=== PATIENT | female | born 1960 | race Caucasian/White ===

== ENCOUNTER → 2017-07-22 | Outpatient (CLI) | payer OTHER ==
[~2017-07-22] MED LIST: AMRIX15 MG PO; ASPIR 8181 MG PO; BIOTIN5 M1 PO; CENTRUM SILVER1 EAC3 PO; CLONAZEPAM0.5 MG PO; CYTOMEL5 MCG PO; ESTRADIOL2 MG PO; LAXATIVE PO; MEGA RED FISH OIL PO; POTASSIUM GLUCONATE PO; STOOL SOFTENER PO; SYNTHROID100 MCG PO; TOBRADEX EYE O3.5 GM OP; TOBREX5 ML OP; VITAMIN E PO
--- NOTE | 2017-07-22 14:40 | Diagnostic Imaging Report ---
History: Neck pain, headaches Comparison studies: MRI of the cervical spine 09/27/2008 Technique: Sagittal T1, T2 and IR, axial T2 and axial gradient echo Intravenous contrast: None Findings: Alignment: Normal lordosis. No scoliosis. Cervicomedullary junction: No abnormalities. Patent foramen magnum. Soft tissues: No T2 hyperintense inflammatory changes. Spinal cord: Normal in size and signal from the foramen magnum through T4 Vertebrae: Normal in height and signal intensity. No fractures, infection or neoplasm. Degenerative changes: C2-C3: No abnormalities. C3-C4: Small central disc osteophyte complex with patent canal and foramina C4-C5: Mild disc degeneration with loss of T2 signal. Diffuse disc osteophyte complex and bilateral uncinate process hypertrophy with patent canal and foramina C5-C6: Disc degeneration with loss of T2 signal. Diffuse disc osteophyte complex and bilateral uncinate process hypertrophy results in mild canal stenosis, moderate right and mild left foraminal narrowing C6-C7: Disc degeneration with loss of T2 signal. Diffuse disc osteophyte complex with patent canal and foramina C7-T1: No abnormalities. IMPRESSION: 1. Moderate right and mild left foraminal narrowing at C5-6 secondary to degenerative changes. 2. Other mild degenerative changes as described above No significant change from previous examination. Signed by: DR Robe Antonio M.D. on 07/22/2017 2:37 PM
== END ==
LOC: MRI 12:49
PROVIDERS: ATTEND Family Medicine
DX: M50.30 Other cervical disc degeneration, unspecified cervical region (principal)
CPT/HCPCS: 72141

== ENCOUNTER → 2017-08-18 | Outpatient (CLI) | payer OTHER ==
--- NOTE | 2017-08-18 09:04 | Diagnostic Imaging Report ---
PROCEDURE:ABDOMINAL ULTRASOUND COMPARISON:[facility], CT, CT ABDOMEN AND PELVIS WITH CONTRAST, 07/05/2009, 11:10. [facility], US, ABDOMINAL ULTRASOUND, 07/21/2008, 8:05. INDICATION:RUQ ABDOMEN PAIN TECHNIQUE:Knapp scale color Doppler ultrasound FINDINGS: Image portions of the inferior vena cava and abdominal aorta are of normal caliber. 1.2 x 0.6 x 0.8 cm anechoic nodule within the pancreatic tail/distal body. No associated vascularity or calcification. Right liver span 17 cm. Mildly increased parenchymal echogenicity with a smooth margin. Portal vein diameter: 0.7 cm; normal flow direction. Normal gallbladder. Wall thickness 0.2 cm. Common bile duct diameter 0.2 cm. Right kidney span: 11.7 cm Left kidney span: 9.2 cm. Both kidneys are normal. Splenic length 7.6 cm. CONCLUSION: 1. Interval development of a 1 cm anechoic cystic nodule within the pancreatic tail relative to June 2009. Primary differential considerations include pseudocyst and side-branch IPMN. Pancreas protocol MRI is recommended for further evaluation. 2. Hepatic steatosis. Dictated by: Ant Stone M.D. on 08/18/2017 at 9:06 Electronically approved by: Ant Stone M.D. on 08/18/2017 at 9:06
== END ==
LOC: US 07:30
PROVIDERS: ATTEND Family Medicine
DX: R10.11 Right upper quadrant pain (principal)
CPT/HCPCS: 76700

== ENCOUNTER → 2017-08-19 | Outpatient (CLI) | payer OTHER ==
[~2017-08-19] MED LIST changes: +GADOBENATE DIMEGLUMINE 1 ML IV ONE; +SODIUM CHLORIDE 0.9% 50ML 50 ML ONE
--- NOTE | 2017-08-19 20:20 | Diagnostic Imaging Report ---
PROCEDURE: MRI ABDOMEN WOW/MRCP TECHNIQUE: Axial T1 in and out of phase, axial T2, with and without fat-sat, axial T2 fat sat, axial DWI, and ADC MR images of the abdomen were performed before the intravenous administration of 12 cc of gadolinium. Axial T1, GRE dynamic images in precontrast, arterial, venous and delayed phases were performed. Subtraction images were also obtained. Heavily T2-weighted MRCP images were performed, including thick and thin slab MRCP ASSETT, 3-D breath-hold FRFSE, and 3-D reconstructions. COMPARISON: [facility], US, US ABDOMEN COMPLETE, 08/18/2017, 8:06. INDICATIONS: Cystic pancreatic lesion on ultrasound FINDINGS: LOWER THORAX: Lung bases are unremarkable. Bilateral breast implants. LIVER: Mild hepatomegaly. No hepatic signal abnormality. No focal hepatic lesions. BILIARY: No intra-extrahepatic biliary ductal dilation. Gallbladder is unremarkable, without filling defects, wall thickening or surrounding fluid. PANCREAS: No ductal dilation. 1.1 x 0.8 cm T2 hyperintense, T1 hypointense, slightly lobulated nonenhancing lesion in the pancreatic body, which appears to connect to the pancreatic duct (series 10, images 70-72 and series 13, image 4-6). This lesion contains a thin, non-vascular septation in its superior aspect (best visualized on series 100/subtraction images, image 70 and series 15, image 21). No enhancing mural nodules or soft tissue components. No other focal cystic or solid lesions. No peripancreatic increase T2 signal/free fluid or fluid collections. SPLEEN: No splenomegaly. ADRENALS: No nodules. KIDNEYS: No hydronephrosis or solid mass in the imaged portion of the kidneys. PERITONEUM / RETROPERITONEUM: No upper abdominal free fluid. LYMPH NODES: No upper abdominal lymphadenopathy. VESSELS: Unremarkable BONES AND SOFT TISSUES: Dextroscoliosis of the lumbar spine with associated degenerative changes. IMPRESSION: 1. cystic nonenhancing lesion in the pancreatic body, corresponding to the abnormalities seen on recent ultrasound likely represents a sidebranch IPMN given the connection with the pancreatic duct. Although a thin nonvascular septation is visualized, no mural nodules or solid components are identified. It is possible that this may represent 2 adjacent smaller cystic lesions, rather than a single lesion with a thin septation. No high risk stigmata of malignancy or worrisome features. Recommend followup abdominal MRI in 6 months to document stability. 2. Mild hepatomegaly. George Schaffer M.D. Dictated by: George Schaffer M.D. on 08/19/2017 at 20:22 Electronically approved by: George Schaffer M.D. on 08/19/2017 at 20:22
== END ==
LOC: MRI 15:21
PROVIDERS: ATTEND Family Medicine
DX: R93.8 Abnormal findings on diagnostic imaging of other specified body structures (principal)
CPT/HCPCS: 74183

== ENCOUNTER → 2017-08-29 | Day surgery (SDC) | payer OTHER ==
[2017-08-27 12:26] LABS: BASOPHILS % 0.4 % (0.0-1.0); EOSINOPHILS # (AUTO) 0.1 (0.0-0.4); EOSINOPHILS % 0.9 % (0.0-6.0); HEMATOCRIT 40.3 % (34.2-44.1); HEMOGLOBIN 13.5 g/dL (12.0-16.0); LYMPHOCYTES # (AUTO) 1.8 (1.0-3.2); LYMPHOCYTES % 25.5 % (18.0-39.1); MEAN CORPUSCULAR HEMOGLOBIN 32.1 pg (28-32); MEAN CORPUSCULAR HGB CONC 33.5 g/dL (31-35); MONOCYTES # (AUTO) 0.5 (0.2-0.8); MONOCYTES % 6.4 % (4.4-11.3); NEUTROPHILS # (AUTO) 4.7 (2.1-6.9); NEUTROPHILS % 66.7 % (38.7-80.0); PLATELET COUNT 320 x10e3/uL (140-360); RED CELL DISTRIBUTION WIDTH 13.8 % (11.7-14.4)
[2017-08-27 12:46] LABS: ANION GAP 14.4 mmol/L (8-16); BLOOD UREA NITROGEN 16 mg/dL (7-26); BUN/CREATININE RATIO 19 (6-25); CALCIUM 9.9 mg/dL (8.4-10.2); CARBON DIOXIDE 30 mmol/L (22-29); CHLORIDE 94 mmol/L (98-107); CREATININE, SERUM 0.83 mg/dL (0.57-1.11); EST GLOMERULAR FILTRATION RATE > 60 ML/MIN (60-); GLUCOSE 92 mg/dL (74-118); POTASSIUM 4.4 mmol/L (3.5-5.1); SODIUM 134 mmol/L (136-145)
[~2017-08-29] MED LIST changes: +FENTANYL CITRATE/PF 100MCG/2 ML INJ ONE; -GADOBENATE DIMEGLUMINE 1 ML IV ONE; +MIDAZOLAM HCL 2 MG/2 ML VIAL ONE; +PROPOFOL IV EMULSION 10 MG/ML 20 ML VIAL ONE; -SODIUM CHLORIDE 0.9% 50ML 50 ML ONE; +SUMATRIPTAN SUC25 MG PO; +TRINTELLEX BLADIN; +TYLENOL WITH C1 EACH PO
== END | disposition home or self-care (01) ==
LOC: OR 07:09
PROVIDERS: ATTEND Surgery
DX: K29.71 Gastritis, unspecified, with bleeding (principal); K29.50 Unspecified chronic gastritis without bleeding; K21.0 Gastro-esophageal reflux disease with esophagitis; G43.909 Migraine, unspecified, not intractable, without status migrainosus; M54.9 Dorsalgia, unspecified; M54.2 Cervicalgia; Z88.5 Allergy status to narcotic agent; Z88.8 Allergy status to other drugs, medicaments and biological substances; Z91.018 Allergy to other foods; Z01.810 Encounter for preprocedural cardiovascular examination; Z01.812 Encounter for preprocedural laboratory examination; Z79.82 Long term (current) use of aspirin
CPT/HCPCS: 36415; 43239; 80048; 85025; 88305; 88312; 93005; J2250

== ENCOUNTER → 2017-09-04 | Outpatient (CLI) | payer OTHER ==
[~2017-09-04] MED LIST changes: -FENTANYL CITRATE/PF 100MCG/2 ML INJ ONE; -MIDAZOLAM HCL 2 MG/2 ML VIAL ONE; -PROPOFOL IV EMULSION 10 MG/ML 20 ML VIAL ONE; +SINCALIDE 3 MCG/VIAL INJ ONE
--- NOTE | 2017-09-04 18:29 | Diagnostic Imaging Report ---
Hepatobiliary Scan with Gallbladder Ejection Fraction Clinical information: 57 F with RUQ abdominal pain with bloating and nausea Report: Following intravenous administration of 7 millicuries of Tc-99m mebrofenin, dynamic images of the abdomen in the anterior projection were obtained through 46 minutes. Sincalide (CCK analog) 1.3 micrograms was administered intravenously over 30 minutes with additional imaging for determination of gallbladder ejection fraction. Perfusion to the liver is normal. Extraction of tracer from the blood pool by the liver parenchyma is normal. Tracer is seen promptly within the biliary tract. The gallbladder begins to fill by 10 minutes post-injection of tracer and fills adequately. Tracer is seen in the small bowel by 15 minutes. The gallbladder ejection fraction with administration of sincalide is 91% (normal greater than 40%). Impression: 1. Filling of the gallbladder excludes the diagnosis of acute cystic duct obstruction/acute cholecystitis. 2. Normal gallbladder ejection fraction of 91% does not support the clinical diagnosis of chronic cholecystitis/gallbladder dyskinesia. Signed by: Dr. Jackie Martins M.D. on 09/04/2017 6:25 PM
== END ==
LOC: NM 13:37
PROVIDERS: ATTEND Surgery
DX: R10.13 Epigastric pain (principal)
CPT/HCPCS: 78227; A9537; J2805

== ENCOUNTER → 2018-07-09 | Outpatient (CLI) | payer BC ==
[~2018-07-09] MED LIST changes: +GADOBENATE DIMEGLUMINE 1 ML IV ONE; -SINCALIDE 3 MCG/VIAL INJ ONE
--- NOTE | 2018-07-12 16:59 | Diagnostic Imaging Report ---
EXAMINATION: MRI Abdomen with and without contrast. TECHNIQUE: Axial T1 nonfat sat in and out of phase, axial T2 fat sat, coronal T2 nonfat sat, axial DWI and ADC MR images of the abdomen were obtained before and after the administration of cc of gadolinium. Axial T1 fat sat GRE dynamic images in precontrast, arterial, venous and delayed phases were obtained. Heavily T2-weighted MRCP images were also performed, including thick and thin slab MRCP ASSETT and 3-D reconstructions. CLINICAL HISTORY:Pancreatic cyst COMPARISON: MRI abdomen 08/19/2017 FINDINGS: LOWER THORAX: Lung bases are clear.. Bilateral breast implants are again noted. LIVER: Normal hepatic contour. Likely Rose's lobe.. No hepatic signal abnormality. No focal hepatic lesions. BILIARY: No intra or extrahepatic biliary ductal dilation. The common bile duct measures 4.2 mm at the michelle hepatis and 3.5 mm at the pancreatic head. Normal luminal contour and normal tapering to the ampulla. No intraluminal filling defects, strictures or extrinsic compressions. Gallbladder is unremarkable, without filling defects, wall thickening or pericholecystic fluid.. PANCREAS: Stable 1.2 x 0.7 cm lobulated T2 hyperintense, T1 hypointense, nonenhancing lesion in the pancreatic body adjacent to the pancreatic duct (series 6, image 20 and series 9, image 71), which contains a single thin septation with perceived enhancement. No enhancing mural nodules are identified. The pancreatic duct is normal in caliber. No other focal lesions. SPLEEN: No splenomegaly. ADRENALS: No nodules. KIDNEYS: No hydronephrosis or solid enhancing mass in the imaged portion of the kidneys. Mild to moderate right pelviectasis, which is relatively unchanged since the prior exam. PERITONEUM / RETROPERITONEUM: No upper abdominal free fluid. GI TRACT: Visualized bowel shows no dilation or obstruction. LYMPH NODES: No upper abdominal lymphadenopathy. VESSELS: The celiac trunk, superior and inferior mesenteric and bilateral renal arteries are patent. The portal, superior mesenteric and splenic veins are patent. No collateral circulation. BONES AND SOFT TISSUES: Stable dextroscoliosis of the lumbar spine, with associated degenerative changes. No soft tissue abnormalities. IMPRESSION: 1. Stable size and appearance of 1.2 cm lobulated cystic lesion in the pancreatic body adjacent to the pancreatic duct, which likely represents 2 adjacent unilocular lesions by pancreatic tissue rather than a true septation, suggesting adjacent side branch IPMNs. No definite worrisome features or enhancing mural nodules. Recommend follow-up contrast-enhanced MRI abdomen with pancreas mass protocol in 12 months to document stability. 2. Mild to moderate right pelviectasis common which is relatively unchanged since the prior exam Signed by: Dr. George Schaffer M.D. on 07/12/2018 4:56 PM
== END ==
LOC: MRI 14:37
PROVIDERS: ATTEND Internal Medicine Gastroenterology
DX: R10.11 Right upper quadrant pain (principal); R93.5 Abnormal findings on diagnostic imaging of other abdominal regions, including retroperitoneum; K86.2 Cyst of pancreas
CPT/HCPCS: 74183